=== PATIENT | male | born 2000 | race African-American/Black ===

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

== ENCOUNTER 2019-07-06 09:06 | Emergency (ER) | payer MEDICAID ==
[2019-07-06 09:18] VITALS: BP 110/74; PULSE 89
[2019-07-06] MEDS ORDERED: Sodium Chloride 0.9% 10 ML Syringe FLUSH PRN (09:30)
[2019-07-06 10:06] LABS: CHLORIDE,CL 101 mmol/L (98-107); SODIUM,NA 141 mmol/L (136-145)
[2019-07-06 10:07] LABS: ANION GAP 14.7 mmol/L (10-20)
[2019-07-06] MEDS ORDERED: Iopamidol 612 MG/ML 100 ML Bottle IVPUSH ONE (10:30)
--- NOTE | 2019-07-06 11:21 | EDM.PDOC ---
ED HPI GENERAL MEDICAL PROBLEM - General Chief Complaint: General Stated Complaint: NOT FEELING WELL Time Seen by Provider: 07/06/19 09:20 - History of Present Illness INITIAL COMMENTS - FREE TEXT/NARRATIVE: Pt presents with c/o 10/10 bone pain to chest back and upper legs. Has had pain x 2 wks, denies any recent traumas or illnesses. Generalized Pain Score (Numeric/FACES): 10 - Related Data Allergies Allergy/AdvReac Type Severity Reaction Status Date / Time No Known Allergies Allergy Verified 07/06/19 09:22 Home Meds: Home Meds . [No Known Home Meds] 03/24/16 [History] Past Medical History - Past Health History Medical/Surgical History: Denies Medical/Surgical History Psychiatric History: Reports: Anxiety - Past Surgical History HEENT Surgical History: Reports: Other (See Below) Social & Family History - Tobacco Use Smoking Status *Q: Never Smoker - Recreational Drug Use Recreational Drug Use: No ED ROS GENERAL - Review of Systems Review Of Systems: See Below Constitutional: Reports: No Symptoms HEENT: Reports: No Symptoms Respiratory: Reports: No Symptoms Cardiovascular: Reports: No Symptoms Endocrine: Reports: No Symptoms GI/Abdominal: Reports: No Symptoms : Reports: No Symptoms Musculoskeletal: Reports: Other (Bone pain x 2 wks ) Skin: Reports: No Symptoms Neurological: Reports: No Symptoms Psychiatric: Reports: No Symptoms Hematologic/Lymphatic: Reports: No Symptoms Immunologic: Reports: No Symptoms ED EXAM, GENERAL - Physical Exam Exam: See Below Free Text/Narrative:: Pt presents c/o bone pain x 2 wks, denies any recent trauma or illnesses. Does have elevated wbc with no left shift, elevated crp and normal esr. ct with no acute findings. Will give solumedrol today in er and place on medrol dose pk. PT to follow up with pcp for further evaluation and treatment as needed. Exam Limited By: No Limitations General Appearance: Alert, WD/WN, No Apparent Distress Eye Exam: Bilateral Eye: PERRL Ears: Normal External Exam, Normal Canal, Hearing Grossly Normal, Normal TMs Nose: Normal Inspection, Normal Mucosa, No Blood Throat/Mouth: Normal Inspection, Normal Lips, Normal Teeth, Normal Gums, Normal Oropharynx, Normal Voice, No Airway Compromise Head: Atraumatic, Normocephalic Neck: Normal Inspection, Supple, Non-Tender, Full Range of Motion Respiratory/Chest: No Respiratory Distress, Lungs Clear, Normal Breath Sounds, No Accessory Muscle Use, Chest Non-Tender Cardiovascular: Normal Peripheral Pulses, Regular Rate, Rhythm, No Edema, No Gallop, No JVD, No Murmur, No Rub GI/Abdominal: Normal Bowel Sounds, Soft, Non-Tender, No Organomegaly, No Distention, No Abnormal Bruit, No Mass, Pelvis Stable Extremities: Normal Inspection, Normal Range of Motion, Non-Tender, No Pedal Edema, Normal Capillary Refill Neurological: Alert, Oriented, CN II-XII Intact Psychiatric: Normal Affect, Normal Mood Skin Exam: Warm, Dry, Intact, Normal Color Lymphatic: No Adenopathy Course - Vital Signs Last Recorded V/S: Last Vital Signs Temp 36.9 C 07/06/19 09:11 Pulse 89 07/06/19 09:11 Resp 16 07/06/19 09:11 BP 110/74 07/06/19 09:11 Pulse Ox 96 07/06/19 09:11 - Orders/Labs/Meds Orders: Active Orders 24 hr Category Date Time Status Sodium Chloride 0.9% [Saline Flush] Med 07/06/19 09:30 Active 10 ml FLUSH ASDIRECTED PRN Peripheral IV Insertion Adult [OM.PC] Routine Oth 07/06/19 09:30 Ordered Medication Orders Sodium Chloride (Saline Flush) 10 ml FLUSH ASDIRECTED PRN PRN Reason: Keep Vein Open Labs: Laboratory Tests 07/06/19 07/06/19 07/06/19 Range/Units 09:37 09:40 09:40 WBC 10.9 H (4.0-10.0) x10^3/uL RBC 6.42 H (4.5-6.0) x10^6/uL Hgb 14.9 D (14.0-18.0) g/dL Hct 42.9 (40.0-52.0) % MCV 66.8 L (78.0-93.0) fL MCH 23.2 L (26.0-32.0) pg MCHC 34.7 (32.0-36.0) g/dL RDW Coeff of Dipesh 22.1 H (10.0-15.0) % Plt Count 152 (130-400) x10^3/uL ESR (0-16) mm/hr Sodium 141 (136-145) mmol/L Potassium 3.7 (3.5-5.1) mmol/L Chloride 101 (98-107) mmol/L Carbon Dioxide 29 (21-32) mmol/L Anion Gap 14.7 (10-20) mmol/L BUN 8 (7-18) mg/dL Creatinine 1.1 (0.70-1.30) mg/dL Est Cr Clr Drug Dosing TNP Estimated GFR (MDRD) > 60 Glucose 82 (74-106) mg/dL Calcium 9.1 (8.5-10.1) mg/dL Corrected Calcium 8.94 (8.5-10.1) mg/dL Total Bilirubin 1.3 H (0.2-1.0) mg/dL AST 15 (15-37) U/L ALT 15 L (16-63) U/L Alkaline Phosphatase 52 (46-116) U/L C-Reactive Protein (<=0.9) mg/dL Total Protein 8.6 H (6.4-8.2) g/dL Albumin 4.2 (3.4-5.0) g/dL Globulin 4.4 Albumin/Globulin Ratio 0.95 Urine Color Dark yellow H (YELLOW) Urine Appearance Slightly cloudy H (CLEAR) Urine pH 6.0 (5.0-8.0) Ur Specific [place] 1.025 Urine Protein 30 H (NEGATIVE) mg/dL Urine Glucose (UA) Negative (NEGATIVE) mg/dL Urine Ketones Trace H (NEGATIVE) mg/dL Urine Occult Blood Negative (NEGATIVE) Urine Nitrite Negative (NEGATIVE) Urine Bilirubin Small H (NEGATIVE) Urine Urobilinogen 2.0 H (0.2) EU/dL Ur Leukocyte Esterase Negative (NEGATIVE) Urine RBC 0-5 (NOT SEEN) /HPF Urine WBC Not seen (NOT SEEN) /HPF Ur Squamous Epith Cells Rare (NEGATIVE) /HPF Urine Bacteria Rare (NEGATIVE) /HPF Urine Mucus Moderate H (NEGATIVE) /LPF 07/06/19 07/06/19 Range/Units 09:40 09:40 WBC (4.0-10.0) x10^3/uL RBC (4.5-6.0) x10^6/uL Hgb (14.0-18.0) g/dL Hct (40.0-52.0) % MCV (78.0-93.0) fL MCH (26.0-32.0) pg MCHC (32.0-36.0) g/dL RDW Coeff of Dipesh (10.0-15.0) % Plt Count (130-400) x10^3/uL ESR 5 (0-16) mm/hr Sodium (136-145) mmol/L Potassium (3.5-5.1) mmol/L Chloride (98-107) mmol/L Carbon Dioxide (21-32) mmol/L Anion Gap (10-20) mmol/L BUN (7-18) mg/dL Creatinine (0.70-1.30) mg/dL Est Cr Clr Drug Dosing Estimated GFR (MDRD) Glucose (74-106) mg/dL Calcium (8.5-10.1) mg/dL Corrected Calcium (8.5-10.1) mg/dL Total Bilirubin (0.2-1.0) mg/dL AST (15-37) U/L ALT (16-63) U/L Alkaline Phosphatase (46-116) U/L C-Reactive Protein 11.6 H (<=0.9) mg/dL Total Protein (6.4-8.2) g/dL Albumin (3.4-5.0) g/dL Globulin Albumin/Globulin Ratio Urine Color (YELLOW) Urine Appearance (CLEAR) Urine pH (5.0-8.0) Ur Specific [place] Urine Protein (NEGATIVE) mg/dL Urine Glucose (UA) (NEGATIVE) mg/dL Urine Ketones (NEGATIVE) mg/dL Urine Occult Blood (NEGATIVE) Urine Nitrite (NEGATIVE) Urine Bilirubin (NEGATIVE) Urine Urobilinogen (0.2) EU/dL Ur Leukocyte Esterase (NEGATIVE) Urine RBC (NOT SEEN) /HPF Urine WBC (NOT SEEN) /HPF Ur Squamous Epith Cells (NEGATIVE) /HPF Urine Bacteria (NEGATIVE) /HPF Urine Mucus (NEGATIVE) /LPF Meds: Medications Generic Name Dose Route Start Last Admin Trade Name Freq PRN Reason Stop Dose Admin Sodium Chloride 10 ml 07/06/19 09:30 Saline Flush FLUSH ASDIRECTED PRN Keep Vein Open Discontinued Medications Generic Name Dose Route Start Last Admin Trade Name Freq PRN Reason Stop Dose Admin Iopamidol 100 ml 07/06/19 10:30 07/06/19 10:51 Isovue-300 (61%) IVPUSH 07/06/19 10:31 100 ml ONETIME ONE Administration Methylprednisolone Sodium Succinate 125 mg 07/06/19 11:36 Solu-Medrol IVPUSH 07/06/19 11:37 ONETIME ONE Departure - Departure Time of Disposition: 11:40 Disposition: Home, Self-Care 01 Condition: Good Clinical Impression: Body aches, Bone pain - Discharge Information Referrals: Kateryna Tirado MD [Primary Care Provider] - Forms: ED Department Discharge Additional Instructions: PT with elevated crp, wbc. Ct negative. Pt to foloow up with pcp for further evaluation and treatment as needed. - My Orders Last 24 Hours: My Active Orders 07/06/19 09:30 Sodium Chloride 0.9% [Saline Flush] 10 ml FLUSH ASDIRECTED PRN Peripheral IV Insertion Adult [OM.PC] Routine - Assessment/Plan Last 24 Hours: My Active Orders 07/06/19 09:30 Sodium Chloride 0.9% [Saline Flush] 10 ml FLUSH ASDIRECTED PRN Peripheral IV Insertion Adult [OM.PC] Routine
--- NOTE | 2019-07-06 11:35 | CT ---
[id number] CT/CT Chest Abdomen Pelvis W IV EXAM: CT Chest Abdomen Pelvis W IV CLINICAL DATA: BONE PAIN IN CHEST, UPPER AND LOWER BACK. COMPARISON STUDY: None. FINDINGS: No pleural effusion, pneumothorax, or pulmonary contusion. No parenchymal airspace consolidation. No pneumomediastinum. No pericardial effusion. No lymphadenopathy. Abdomen and pelvis: Liver, spleen, gallbladder, pancreas, adrenal glands, and kidneys are unremarkable. No evidence of bowel injury, obstruction, or inflammation. Urinary bladder is intact. No lymphadenopathy, free fluid, or pneumoperitoneum. Bones and soft tissues: Cortical irregularity involving the xiphoid process may be related to old fracture or anatomic variant. There is no associated hematoma or soft tissue edema to suggest acute injury. No other osseous abnormalities are identified. IMPRESSION: Cortical irregularity involving the xiphoid process may be related to old fracture or anatomic variant. There is no associated hematoma or soft tissue edema to suggest acute injury. No other osseous abnormalities are identified. Darci Robbins DO 07/06/19 1134 Thank you for allowing us to participate in the care of your patient.
[2019-07-06] MEDS ORDERED: methylPREDNISolone Sodium Succinate 125 MG/2 ML SDV IVPUSH ONE (11:36)
== END 2019-07-06 11:49 | disposition home or self-care (01) ==
LOC: VM.ED 09:06
DX: M89.8X9 Other specified disorders of bone, unspecified site (principal); M79.7 Fibromyalgia
CPT/HCPCS: 36415; 71260; 74177; 80053; 81001; 85027; 85652; 86140; 87804; 87804-59; 96374; 99285-25; J2930; Q9967

== ENCOUNTER 2023-07-15 09:41 | Emergency (ER) | payer MEDICAID, OTHER ==
[2023-07-15] MEDS: Lidocaine 1% 30 ML SDV INJECT ONE (09:50)
[2023-07-15 10:02] VITALS: BP 141/78; PULSE 101
[2023-07-15] MEDS: Diphtheria,Pertussis(Acell),Tetanus Vaccine 0.5 ML Syringe IM ONE (10:09)
== END 2023-07-15 10:14 | disposition home or self-care (01) ==
LOC: VM.ED 09:41
DX: S61.511A Laceration without foreign body of right wrist, initial encounter (principal); Z23 Encounter for immunization; Z79.899 Other long term (current) drug therapy; W26.8XXA Contact with other sharp object(s), not elsewhere classified, initial encounter
CPT/HCPCS: 12002; 90471; 90715; 99282-25; J3490

== ENCOUNTER 2023-08-27 10:13 | Emergency (ER) | payer OTHER ==
[2023-08-27 10:48] VITALS: BP 135/68; PULSE 60
== END 2023-08-27 12:11 | disposition home or self-care (01) ==
LOC: VM.ED 10:13
DX: S40.021A Contusion of right upper arm, initial encounter (principal); W01.0XXA Fall on same level from slipping, tripping and stumbling without subsequent striking against object, initial encounter
CPT/HCPCS: 73060-RT; 99283

== ENCOUNTER 2023-09-18 20:12 | Emergency (ER) | payer MEDICAID, OTHER ==
[2023-09-18] MEDS ORDERED: Lidocaine 1% 10 ML MDV INJECT ONE (20:19)
[2023-09-19 04:13] VITALS: BP 127/89; PULSE 95
== END 2023-09-18 21:01 | disposition home or self-care (01) ==
LOC: VM.ED 20:12
DX: S61.210A Laceration without foreign body of right index finger without damage to nail, initial encounter (principal); W26.8XXA Contact with other sharp object(s), not elsewhere classified, initial encounter
CPT/HCPCS: 12002; 99282; J3490